=== PATIENT | female | born 1975 | race Caucasian/White ===

== ENCOUNTER 2019-05-31 16:52 | Emergency (ER) | payer MEDICARE ==
[~2019-05-31] VITALS: Ht 172.7 cm; Wt 65.8 kg
[2019-05-31] MEDS ORDERED: AZIT250T PO (17:31)
[2019-05-31] MEDS ORDERED: DULO30CA2 PO (17:31)
[2019-05-31] MEDS ORDERED: LIOT5TAB7 PO (17:31)
[2019-05-31] MEDS ORDERED: LEVO100T PO (17:31)
[2019-05-31] MEDS ORDERED: NEOMY/BACITRA/POLYMYXIN B OINT UD PACKET TP ONE ×2 (18:43→18:45)
[2019-05-31] MEDS ORDERED: TDAP DIPH,PERTUSS,TET VAC/PF 0.5 ML DISP.SYRIN IM ONE ×2 (18:43→18:45)
--- NOTE | 2019-05-31 18:48 | NUR ---
Patients wound irrigated with betadyne, Tetanus injection given and Dry dressing applied to wound.
--- NOTE | 2019-05-31 18:53 | NUR ---
Patient discharged to home in stable condition. Written and verbal after care instructions given. Patient and caregiver Tee verbalizes understanding of instructions.
[2019-05-31 18:54] VITALS: BP 118/77
== END 2019-05-31 18:55 | disposition home or self-care (01) ==
LOC: ER 16:56
DX: S61.451A Open bite of right hand, initial encounter (principal); W54.0XXA Bitten by dog, initial encounter; Y92.89 Other specified places as the place of occurrence of the external cause; E07.9 Disorder of thyroid, unspecified; Z79.890 Hormone replacement therapy
CPT/HCPCS: 90715; A4663